=== PATIENT | female | born 1970 | race Caucasian/White ===

== ENCOUNTER 2017-01-31 02:20 | Emergency (ER) | payer OTHER ==
[~2017-01-31] VITALS: Ht 170.2 cm; Wt 64.6 kg
[~2017-01-31 02:20] MED LIST: AMPH30CA3 PO; ASPEC325 PO; BUPRTAB51 PO; FLUT220A INH; GABA-113 PO; LIDO1SOL9 PO; MECL1TAB40 PO; ONDA4TAB46 PO; OXYSR10 PO; PRAM0.129 PO; PREG200C PO; PRLSR20 PO; SALI0.6517 NAE; TRAM-453 PO; TRIA0.1L TOP; TRIA3AER NAE; VENL-273 PO
[2017-01-31 02:21] VITALS: TEMP 37.2; Ht 170.2 cm; Wt 64.6 kg
[2017-01-31] MEDS ORDERED: KETOROLAC TROMETHAMINE 30 MG/ML VIAL IV STA (02:38)
[2017-01-31] MEDS ORDERED: SODIUM CHLORIDE 0.9% 1000ML 1,000 ML IV ONE (02:45)
[2017-01-31] MEDS ORDERED: ACETAMINOPHEN IV 100 ML IV ONE (02:45)
[2017-01-31] MEDS ORDERED: FLUO90CA PO (02:54)
[2017-01-31] MEDS ORDERED: OMEP40CA41 PO (02:59)
[2017-01-31] MEDS ORDERED: DICL-201 PO (02:59)
[2017-01-31] MEDS ORDERED: PREG1CAP34 PO (02:59)
[2017-01-31] MEDS ORDERED: NIFE30TA83 PO (02:59)
[2017-01-31] MEDS ORDERED: PRAM1TAB52 PO (02:59)
[2017-01-31] MEDS ORDERED: GLC/500 PO (03:02)
[2017-01-31] MEDS ORDERED: HYDR-3124 PO (03:02)
[2017-01-31] MEDS ORDERED: TOPI50TA16 PO (03:03)
[2017-01-31] MEDS ORDERED: VNTHFA/IN INH (03:03)
[2017-01-31 03:06] LABS: BASO % 0.3 %; BASO ABS # 0.02 K/uL (0-0.2); COMPLETE YES; EOS % 1.5 %; HEMATOCRIT 34.1 % (37-47); IG% 0.1 %; LYMPH % 17.5 %; LYMPH ABS # 1.31 K/uL (1.2-3.4); MEAN CELL VOLUME 82.8 fL (80-100); MEAN CORPUSCULAR HEMOGLOBIN 27.7 pg (25-34); MEAN CORPUSCULAR HGB CONC 33.4 g/dl (32-36); MEAN PLATELET VOLUME 9.6 fL (7.4-10.4); MONO % 6.3 %; NEUT % 74.3 %; PLATELET COUNT 280 K/uL (130-400); RED BLOOD COUNT 4.12 M/uL (4.2-5.4); WHITE BLOOD COUNT 7.47 K/uL (4.8-10.8)
[2017-01-31 03:10] LABS: URINE APPEARANCE CLEAR (CLEAR); URINE BILIRUBIN NEG (NEG); URINE COLOR YELLOW; URINE EPITHELIAL CELL AUTO >30 /lpf (0-5); URINE NITRITE NEG (NEG); UROBILINOGEN NEG (NEG); ZZUR CULT IF INDIC CLEAN CATCH NO
[2017-01-31 03:11] LABS: MANUAL MICROSCOPIC REQUIRED? NO; REVIEW REQ? NO
[2017-01-31 03:23] LABS: BUN/CREATININE RATIO 18.7 (10-20); CALCIUM 8.1 mg/dl (8.5-10.1); CREATININE 0.69 mg/dl (0.60-1.20); POTASSIUM 3.6 mmol/L (3.5-5.1)
[2017-01-31] MEDS ORDERED: NORCO 5/325MG HOME PACK PO ONE (05:30)
[2017-01-31 05:42] VITALS: BP 110/68; PULSE 78; O2SAT 99
--- NOTE | 2017-01-31 07:22 | DIAGNOSTIC IMAGING REPORT ---
ULTRASOUND OF THE PELVIS CLINICAL HISTORY: Pelvic pain. COMPARISON STUDY: No priors. TECHNIQUE: Real-time, grayscale, and color flow sonography of the pelvis is performed both transabdominally and endovaginally. Images are reviewed in the transverse and longitudinal planes. FINDINGS: Uterus: The uterus is normal in size and echotexture, measuring 9.6 x 8.0 x 6.7 cm. The uterus is infiltrated by numerous fibroids. The largest measures over 4 cm. The uterus may be bicornuate. Nabothian cysts are suggested in the cervix. Endometrium: The endometrium is normal visualized and distorted by numerous fibroids. Michel stripe measures at least 4 mm in thickness. There is trace fluid within the endometrial canal in the fundal region. Ovaries: The ovaries are normal in size and morphology. The right ovary measures 3.4 x 1.7 x 1.7 cm and the left ovary measures 2.4 x 1.3 x 1.8 cm. There are small bilateral ovarian follicles. A 2.4 cm complex/hemorrhagic follicle is suggested on the right. Normal Doppler waveforms are shown within both ovaries. Pelvis: There is trace free fluid in the cul-de-sac. No concerning adnexal lesion is seen. IMPRESSION: 1. Enlarged and heterogeneous fibroid uterus. 2. Possibly bicornuate uterus. 3. There is trace and likely physiologic free fluid in the cul-de-sac. 4. There are numerous bilateral ovarian follicles, with a probable hemorrhagic follicle noted on the right. There is no sonographic evidence of a variant torsion at the time of examination. Electronically signed by: Carrillo Baez M.D. 01/31/2017 7:21 AM Dictated Date/Time: 01/31/2017 7:17 AM
--- NOTE | 2017-02-01 07:57 | EMERGENCY ROOM VISIT NOTE ---
History First contact with patient: : Chief Complaint: ABDOMINAL PAIN Stated Complaint: SEVERE PAIN IN LWR ABDOMEN Nursing Triage Summary: Patient reports that she has lower abdominal pain that has been going on for days, notes that she has hx of ovarian cysts. History of Present Illness The patient is a 47 year old female who presents to the Emergency Room with complaints of lower abdominal pain that has been going on for the past several months. The patient states that her symptoms are identical to normal and are worsening over the past 4 or 5 days. The patient reports a history of ovarian cysts and fibroids. She states her pain is sometimes cyclical around the time she should get her period. She has not had fever or chills. No chest pain, chest tightness, shortness of breath, upper abdominal pain. The patient rates her discomfort an 5/10. She does have tramadol at home that she took tonight without significant improvement of symptoms. She is without vaginal bleeding, drainage, or discharge. No dysuria. Review of Systems More than 10 systems were reviewed and otherwise negative with the exception of history of present illness. Past Medical/Surgical History History of anxiety and depression, ovarian cyst, uterine fibroid Family History No pertinent family history Social History Smoking Status: Never Smoker Housing Status: lives with family Current/Historical Medications Scheduled Amphetamine-Dextroamphetamine 30MG (Adderall Xr 30MG), 30 MG PO DAILY Diclofenac (Voltaren), 75 MG PO BIDM Gabapentin (Neurontin), 300 MG PO HS Meclizine HCl (Meclizine HCl), 12.5 MG PO DAILY Metformin Hcl (Glucophage), 500 MG PO BIDM Nifedipine Ext Rel (Procardia Xl Ext Rel), 30 MG PO DAILY Omeprazole (Prilosec), 40 MG PO DAILY Pramipexole Dihydrochloride (Mirapex), 1 TAB PO HS Pregabalin (Lyrica), 300 MG PO BID Topiramate (Topamax), 50 MG PO HS Scheduled PRN Albuterol Hfa (Ventolin Hfa), 2 PUFFS INH Q6H PRN for SOB/Wheezing Hydroxyzine Hcl (Atarax), 25 MG PO Q6 PRN for Itching Tramadol Hcl (Ultram), 50 MG PO Q6H PRN for Pain Miscellaneous Medications Fluoxetine Hcl (Prozac Weekly), 90 MG PO Allergies Coded Allergies: No Known Allergies (Verified , 01/31/17) Physical Exam Vital Signs Date Time Temp Pulse Resp B/P Pulse Ox O2 Delivery O2 Flow Rate FiO2 01/31/17 05:42 78 18 110/68 99 01/31/17 04:55 73 16 113/64 97 Room Air 01/31/17 02:21 37.2 112 18 130/85 98 Room Air Pain Rating (0-10): 3.0 Physical Exam VITALS: Vitals are noted on the nurse's note and reviewed by myself. Vital signs stable. GENERAL: Well-developed, well-nourished, white female, who is in no acute distress and resting comfortably. Patient is cooperative with the examination. HEAD: Normocephalic atraumatic. NECK: Supple without nuchal rigidity. No lymphadenopathy. No thyromegaly. Cervical spine is nontender. HEART: Regular rate and rhythm without murmurs gallops or rubs. LUNGS: Clear to auscultation bilaterally without wheezes, rales or rhonchi. No retractions or accessory muscle use. ABDOMEN: Positive normal bowel sounds x 4. Soft, nontender, without masses or organomegaly. No guarding or rebound tenderness. MUSCULOSKELETAL: No muscle atrophy, erythema, or edema noted. Full range of motion without joint tenderness in all extremities. NEURO: Patient was alert and oriented to person place and time. CN II through XII grossly intact. Medical Decision & Procedures ER Provider Diagnostic Interpretation: ULTRASOUND OF THE PELVIS CLINICAL HISTORY: Pelvic pain. COMPARISON STUDY: No priors. TECHNIQUE: Real-time, grayscale, and color flow sonography of the pelvis is performed both transabdominally and endovaginally. Images are reviewed in the transverse and longitudinal planes. FINDINGS: Uterus: The uterus is normal in size and echotexture, measuring 9.6 x 8.0 x 6.7 cm. The uterus is infiltrated by numerous fibroids. The largest measures over 4 cm. The uterus may be bicornuate. Nabothian cysts are suggested in the cervix. Endometrium: The endometrium is normal visualized and distorted by numerous fibroids. Michel stripe measures at least 4 mm in thickness. There is trace fluid within the endometrial canal in the fundal region. Ovaries: The ovaries are normal in size and morphology. The right ovary measures 3.4 x 1.7 x 1.7 cm and the left ovary measures 2.4 x 1.3 x 1.8 cm. There are small bilateral ovarian follicles. A 2.4 cm complex/hemorrhagic follicle is suggested on the right. Normal Doppler waveforms are shown within both ovaries. Pelvis: There is trace free fluid in the cul-de-sac. No concerning adnexal lesion is seen. IMPRESSION: 1. Enlarged and heterogeneous fibroid uterus. 2. Possibly bicornuate uterus. 3. There is trace and likely physiologic free fluid in the cul-de-sac. 4. There are numerous bilateral ovarian follicles, with a probable hemorrhagic follicle noted on the right. There is no sonographic evidence of a variant torsion at the time of examination. ULTRASOUND OF THE PELVIS CLINICAL HISTORY: Pelvic pain. COMPARISON STUDY: No priors. TECHNIQUE: Real-time, grayscale, and color flow sonography of the pelvis is performed both transabdominally and endovaginally. Images are reviewed in the transverse and longitudinal planes. FINDINGS: Uterus: The uterus is normal in size and echotexture, measuring 9.6 x 8.0 x 6.7 cm. The uterus is infiltrated by numerous fibroids. The largest measures over 4 cm. The uterus may be bicornuate. Nabothian cysts are suggested in the cervix. Endometrium: The endometrium is normal visualized and distorted by numerous fibroids. Michel stripe measures at least 4 mm in thickness. There is trace fluid within the endometrial canal in the fundal region. Ovaries: The ovaries are normal in size and morphology. The right ovary measures 3.4 x 1.7 x 1.7 cm and the left ovary measures 2.4 x 1.3 x 1.8 cm. There are small bilateral ovarian follicles. A 2.4 cm complex/hemorrhagic follicle is suggested on the right. Normal Doppler waveforms are shown within both ovaries. Pelvis: There is trace free fluid in the cul-de-sac. No concerning adnexal lesion is seen. IMPRESSION: 1. Enlarged and heterogeneous fibroid uterus. 2. Possibly bicornuate uterus. 3. There is trace and likely physiologic free fluid in the cul-de-sac. 4. There are numerous bilateral ovarian follicles, with a probable hemorrhagic follicle noted on the right. There is no sonographic evidence of a variant torsion at the time of examination. Laboratory Results 01/31/17 02:53 Red Blood Count 4.12, Mean Corpuscular Volume 82.8, Mean Corpuscular Hemoglobin 27.7, Mean Corpuscular Hemoglobin Concent 33.4, Mean Platelet Volume 9.6, Neutrophils (%) (Auto) 74.3, Lymphocytes (%) (Auto) 17.5, Monocytes (%) (Auto) 6.3, Eosinophils (%) (Auto) 1.5, Basophils (%) (Auto) 0.3, Neutrophils # (Auto) 5.55, Lymphocytes # (Auto) 1.31, Monocytes # (Auto) 0.47, Eosinophils # (Auto) 0.11, Basophils # (Auto) 0.02 01/31/17 02:53 Test 01/31/17 02:45 01/31/17 02:53 Urine Color YELLOW Urine Appearance CLEAR (CLEAR) Urine pH 8.0 (4.5-7.5) Urine Specific [place] 1.020 (1.000-1.030) Urine Protein NEG (NEG) Urine Glucose (UA) NEG (NEG) Urine Ketones NEG (NEG) Urine Occult Blood 2+ (NEG) Urine Nitrite NEG (NEG) Urine Bilirubin NEG (NEG) Urine Urobilinogen NEG (NEG) Urine Leukocyte Esterase TRACE (NEG) Urine WBC (Auto) 1-5 /hpf (0-5) Urine RBC (Auto) 0-4 /hpf (0-4) Urine Hyaline Casts (Auto) 0 /lpf (0-5) Urine Epithelial Cells (Auto) >30 /lpf (0-5) Urine Bacteria (Auto) NEG (NEG) Urine Test NEG (NEG) White Blood Count 7.47 K/uL (4.8-10.8) Red Blood Count 4.12 M/uL (4.2-5.4) Hemoglobin 11.4 g/dL (12.0-16.0) Hematocrit 34.1 % (37-47) Mean Corpuscular Volume 82.8 fL (80-100) Mean Corpuscular Hemoglobin 27.7 pg (25-34) Mean Corpuscular Hemoglobin Concent 33.4 g/dl (32-36) Platelet Count 280 K/uL (130-400) Mean Platelet Volume 9.6 fL (7.4-10.4) Neutrophils (%) (Auto) 74.3 % Lymphocytes (%) (Auto) 17.5 % Monocytes (%) (Auto) 6.3 % Eosinophils (%) (Auto) 1.5 % Basophils (%) (Auto) 0.3 % Neutrophils # (Auto) 5.55 K/uL (1.4-6.5) Lymphocytes # (Auto) 1.31 K/uL (1.2-3.4) Monocytes # (Auto) 0.47 K/uL (0.11-0.59) Eosinophils # (Auto) 0.11 K/uL (0-0.5) Basophils # (Auto) 0.02 K/uL (0-0.2) RDW Standard Deviation 47.6 fL (36.4-46.3) RDW Coefficient of Variation 15.6 % (11.5-14.5) Immature Granulocyte % (Auto) 0.1 % Immature Granulocyte # (Auto) 0.01 K/uL (0.00-0.02) Anion Gap 7.0 mmol/L (3-11) Est Creatinine Clear Calc Drug Dose 100.2 ml/min Estimated GFR () 121.8 Estimated GFR (Non- 105.1 BUN/Creatinine Ratio 18.7 (10-20) Calcium Level 8.1 mg/dl (8.5-10.1) Total Bilirubin 0.5 mg/dl (0.2-1) Aspartate Amino Transf (AST/SGOT) 7 U/L (15-37) Alanine Aminotransferase (ALT/SGPT) 18 U/L (12-78) Alkaline Phosphatase 55 U/L (45-117) Total Protein 6.9 gm/dl (6.4-8.2) Albumin 3.4 gm/dl (3.4-5.0) Globulin 3.5 gm/dl (2.5-4.0) Albumin/Globulin Ratio 1.0 (0.9-2) Lipase 197 U/L (73-393) Medications Administered Medications (Trade) Dose Ordered Sig/Jaylen Route Start Time Stop Time Status Last Admin Dose Admin Ketorolac Tromethamine 30 mg 30 mg NOW STAT IV 01/31/17 02:38 01/31/17 02:40 DC 01/31/17 03:00 30 MG Sodium Chloride 1,000 ml @ 999 mls/hr Q1H1M ONCE IV 01/31/17 02:45 01/31/17 03:45 DC 01/31/17 03:00 999 MLS/HR Acetaminophen (Ofirmev Iv) 100 ml @ 400 mls/hr NOW ONCE IV 01/31/17 02:45 01/31/17 02:59 DC 01/31/17 03:01 400 MLS/HR Acetaminophen/ Hydrocodone Bitart ([place] 5/325mg Home Pack) 1 homepack UD ONCE PO 01/31/17 05:30 01/31/17 05:31 DC 01/31/17 05:30 1 HOMEPACK ED Course Physical exam and history were performed. Nursing notes and EMR were reviewed. Patient appears to have lower abdominal pain/pelvic pain for the past several months. She does not have significant tenderness on examination. The patient has a reported history of fibroids and ovarian cysts. IV access was established and labs were obtained. The patient was hydrated and medicated as above. Ultrasounds were performed. The patient blood work is as above and was reviewed. She does not have a significantly elevated white blood cell count, anemia, bandemia, or gross electrolyte imbalance. Urine is without obvious signs of infection. Ultrasounds do confirm a hemorrhagic ovarian cyst as well as a fibroid uterus. On repeat abdominal examination the patient did not have any worsening of her symptoms. She certainly does not present with peritoneal symptoms or an acute surgical abdomen. Considering that she has had pain for several months and findings on ultrasound they could explain her discomfort I feel that a CAT scan is not necessary at this time. I had a lengthy discussion with the patient regarding her symptoms. She was more comfortable after hydration medication here in the department. I will give her a home pack of Vicodin and instructions to follow with her [employer] for further care and management. The patient was otherwise invited back to the ER with any new, worsening, or concerning symptoms. She voiced understanding of this plan and rated her discomfort a 0/10 at the time of departure. The chart was completed utilizing [employer] Speech Voice Recognition Software. Grammatical errors, random word insertions, pronoun errors, and incomplete sentences are an occasional consequence of this system due to software limitations, ambient noise, and hardware issues. Any formal questions or concerns about the content, text, or information contained within the body of this dictation should be directly addressed to the provider for clarification. . Medical Decision Differential diagnosis: Etiologies such as appendicitis, diverticulitis, PUD, biliary pathology, UTI, pancreatitis, obstruction, mesenteric ischemia, aortic pathology, infections, inflammatory bowel disease, renal colic, as well as others were entertained. Impression Primary Impression: Uterine fibroid Additional Impression: Ovarian cyst Departure Information Dispostion Home / Self-Care Condition GOOD Forms Call Back Authorization, HOME CARE DOCUMENTATION FORM, IMPORTANT VISIT INFORMATION Patient Instructions [facility] Additional Instructions You were seen and evaluated today on an emergency basis only. This is not a substitute for, or an effort to provide, complete comprehensive medical care. It is not possible to recognize and treat all injuries or illnesses in a single emergency department visit. For this reason it is recommended that you followup with your primary care physician or [employer] this week for ongoing care and evaluation. For baseline pain relief you may alternate ibuprofen and acetaminophen every 4 hours for pain control. Take 600 mg ibuprofen (Advil) and then 4 hours later take 1000 mg acetaminophen (Tylenol). Do not take more than 3000 mg acetaminophen in a single day. [place] (hydrocodone/acetaminophen) 5/325 mg (homepack) every 6 hours as needed for worsening breakthrough pain. Do not drink or drive on [place]. This medication will likely make you tired. Do not take [place] and Tylenol at the same time as both contain acetaminophen. Morton may cause constipation. You may wish to take an [id number] stool softener like Colace if this occurs. You are welcome to return to the emergency department anytime with new, worsening, or concerning symptoms. Problem Qualifiers
== END 2017-01-31 05:43 | disposition home or self-care (01) ==
LOC: C.EDB 02:21
DX: D25.9 Leiomyoma of uterus, unspecified (principal); N83.201 Unspecified ovarian cyst, right side; F41.9 Anxiety disorder, unspecified; F32.9 Major depressive disorder, single episode, unspecified; Z79.899 Other long term (current) drug therapy

== ENCOUNTER 2017-03-18 06:26 | Inpatient (IN) | payer OTHER ==
[2017-02-23 13:10] VITALS: BMI 21.0
--- NOTE | 2017-02-23 13:36 | PAT Medication Instructions ---
Service Date Feb 23, 2017. Current Home Medication List Albuterol Hfa (Ventolin Hfa), 2 PUFFS INH Q6H PRN for SOB/Wheezing Amphetamine-Dextroamphetamine 30MG (Adderall Xr 30MG), 30 MG PO QAM Diclofenac (Voltaren), 75 MG PO BIDM Fluoxetine Hcl (Prozac Weekly), 90 MG PO TUESDAY Gabapentin (Neurontin), 300 MG PO HS Hydroxyzine Hcl (Atarax), 25 MG PO Q6 PRN for Itching Nifedipine Ext Rel (Procardia Xl Ext Rel), 30 MG PO HS Omeprazole (Prilosec), 40 MG PO QAM Pramipexole Dihydrochloride (Mirapex), 1 TAB PO HS Pregabalin (Lyrica), 300 MG PO QAM Tramadol Hcl (Ultram), 50 MG PO Q6H PRN for Pain Medication Instructions For Your Scheduled Surgery Albuterol Hfa (Ventolin Hfa), 2 PUFFS INH Q6H PRN for SOB/Wheezing (only uses with bronchitis) Fluoxetine Hcl (Prozac Weekly), 90 MG PO TUESDAY (continue as usual) - Hold the following medications evening prior to surgery: Pramipexole Dihydrochloride (Mirapex), 1 TAB PO HS - Hold the following medications the morning of surgery: Amphetamine-Dextroamphetamine 30MG (Adderall Xr 30MG), 30 MG PO QAM Diclofenac (Voltaren), 75 MG PO BIDM (not told to stop by surgeon) - Take the following medications the morning of surgery with a sip of water: Pregabalin (Lyrica), 300 MG PO QAM Omeprazole (Prilosec), 40 MG PO QAM - Take the following medications as scheduled the night before surgery: Tramadol Hcl (Ultram), 50 MG PO QHS Nifedipine Ext Rel (Procardia Xl Ext Rel), 30 MG PO HS Hydroxyzine Hcl (Atarax), 25 MG PO Q6 PRN for Itching Gabapentin (Neurontin), 300 MG PO HS If you have any questions please call us at [phone] or [phone] ( [place]) or [phone]
[2017-02-23 14:28] LABS: BASO % 0.6 %; BASO ABS # 0.03 K/uL (0-0.2); COMPLETE YES; EOS % 1.8 %; IG% 0.2 %; LYMPH % 31.6 %; LYMPH ABS # 1.55 K/uL (1.2-3.4); MEAN CELL VOLUME 85.1 fL (80-100); MEAN CORPUSCULAR HEMOGLOBIN 27.4 pg (25-34); MEAN CORPUSCULAR HGB CONC 32.2 g/dl (32-36); MONO % 6.9 %; NEUT % 58.9 %; PLATELET COUNT 318 K/uL (130-400); RED BLOOD COUNT 4.35 M/uL (4.2-5.4)
[2017-02-23 16:15] LABS: BUN/CREATININE RATIO 13.8 (10-20); CREATININE 0.65 mg/dl (0.60-1.20); POTASSIUM 3.3 mmol/L (3.5-5.1)
[~2017-03-18] VITALS: Ht 170.2 cm; Wt 63.0 kg
[2017-03-18] VITALS (9 sets, daily range): BP systolic 104–131; BP diastolic 65–82; PULSE 71–84; TEMP 36.4–36.7; O2SAT 94–99; Ht 170.2 cm; Wt 63.0 kg
[~2017-03-18 06:26] MED LIST changes: -ASPEC325 PO; -BUPRTAB51 PO; +CEFAZOLIN 2000 MG/60 ML D5W IV SCH; +DICL-201 PO; +FLUO90CA PO; -FLUT220A INH; +HYDR-3124 PO; +LACTATED RINGER'S 1000ML 1,000 ML IV SCH; -LIDO1SOL9 PO; -MECL1TAB40 PO; +NIFE30TA83 PO; +OMEP40CA41 PO; -ONDA4TAB46 PO; -OXYSR10 PO; -PRAM0.129 PO; +PRAM1TAB52 PO; +PREG1CAP34 PO; -PREG200C PO; -PRLSR20 PO; -SALI0.6517 NAE; -TRIA0.1L TOP; -TRIA3AER NAE; -VENL-273 PO; +VNTHFA/IN INH
--- NOTE | 2017-03-18 07:02 | History & Physical Bridge Note ---
H&P Re-Evaluation Bridge Note: I have examined the patient, reviewed the History & Physical and in the interval since the performance of the History & Physical I have noted the following changes of clinical significance: No changes noted
[2017-03-18] MEDS ORDERED: GLYCOPYRROLATE INJ 0.2 MG/ML VIAL ONE ×2 (07:22→10:52)
[2017-03-18] MEDS ORDERED: ONDANSETRON INJ 2 MG/ML 2 ML VIAL ONE (07:22)
[2017-03-18] MEDS ORDERED: MIDAZOLAM HCL 1 MG/ML 2ML VIAL ONE (07:22)
[2017-03-18] MEDS ORDERED: FENTANYL CITRATE INJ 50 MCG/1 ML 2 ML VIAL ONE ×2 (07:22)
[2017-03-18] MEDS ORDERED: LIDOCAINE HCL 2% 2 ML VIAL (20MG/ML) ONE (07:22)
[2017-03-18] MEDS ORDERED: NEOSTIGMINE METHYLSULFATE 5 MG/5 ML SYR ONE (07:22)
[2017-03-18] MEDS ORDERED: PROPOFOL IV EMULSION 10 MG/ML 20 ML VIAL IV ONE (07:22)
[2017-03-18] MEDS ORDERED: ROCURONIUM BROMIDE 10 MG/ML 5 ML VIAL ONE (07:22)
[2017-03-18] MEDS ORDERED: DEXAMETHASONE SOD INJ 4 MG/ML VIAL ONE (07:22)
[2017-03-18] MEDS ORDERED: HYDROmorphone INJ 1 MG/ML SYR IV PRN (08:15)
[2017-03-18] MEDS ORDERED: ONDANSETRON INJ 2 MG/ML 2 ML VIAL IV PRN ×2 (08:15→11:45)
[2017-03-18] MEDS ORDERED: MEPERIDINE HCL 25 MG/ML CARP IV PRN (08:15)
[2017-03-18] MEDS ORDERED: EpHEDrine SULFATE INJ 50 MG/ML AMP IV PRN (08:15)
[2017-03-18] MEDS ORDERED: ATROPINE SULFATE 0.1 MG/ML 5ML SYR IV PRN (08:15)
[2017-03-18] MEDS ORDERED: LABETALOL HCL IV 5 MG/ML 20ML IV PRN (08:15)
[2017-03-18] MEDS ORDERED: BUPIVACAINE 0.5 % 5 MG/1 ML MPF 30ML VIAL ONE (08:41)
[2017-03-18] MEDS ORDERED: MINERAL OIL LIGHT 10 ML BTL ONE (08:41)
[2017-03-18] MEDS ORDERED: METHYLENE BLUE 0.5% 10 ML VIAL ONE (08:41)
[2017-03-18] MEDS ORDERED: HYDROmorphone INJ 2 MG/ML SYR/VIAL ONE (09:16)
[2017-03-18] MEDS ORDERED: METHYLENE BLUE 1% 10 ML VIAL ONE (10:40)
[2017-03-18] MEDS ORDERED: EpHEDrine SULFATE 50MG/5ML SYR ONE (11:11)
[2017-03-18] MEDS ORDERED: LACTATED RINGER'S 1000ML 1,000 ML IV SCH (11:38)
[2017-03-18] MEDS ORDERED: BISACODYL 10 MG SUPP PR PRN (11:45)
[2017-03-18] MEDS ORDERED: ALBUTEROL HFA 8 GM INHALER INH PRN (11:45)
[2017-03-18] MEDS ORDERED: hydrOXYzine HCL 25 MG TAB PO PRN (11:45)
[2017-03-18] MEDS ORDERED: SENNA 8.6 MG TAB PO PRN (11:45)
[2017-03-18] MEDS ORDERED: IBUPROFEN 600 MG TAB PO PRN (11:45)
[2017-03-18] MEDS ORDERED: MAGNESIUM HYDROXIDE SUSP 30 ML UDC PO PRN (11:45)
--- NOTE | 2017-03-18 11:47 | [facility] Post Operative Brief Note ---
Immediate Operative Summary Operative Date March 18, 2017. Pre-Operative Diagnosis Fibroid Uterus; Chronic Pelvic Pain, vaginal skin tag Post-Operative Diagnosis Fibroid Uterus; Chronic Pelvic Pain, vaginal skin tag, right ovarian mass, left paratubal cyst Procedure(s) Performed laparoscopic hysterectomy with right salpingo-oopherectomy, and left para-tubal cystectomy, cystoscopy, vaginal skin tag removal. Surgeon Dr. Kvng Rosario [facility] Medical Assistant Surgeon(s) Dr. Chacon Estimated Blood Loss 30ml Findings On laparoscopic exam uterus was enlarged with multiple fibroids noted. There was a right ovarian mass therefore the decision was made to remove the right ovary and tube. There was also a left paratubal cyst which was also removed. Once the uterus, cervix, right ovary and tube along with the left paratubal cyst was removed anesthesia was instructed to push methylene blue. Once the vaginal cuff was closed laparoscopically a cystoscopy was performed noting bilateral ureteral openings ejecting blue tinged urine indicating bilateral ureters were intact. There was also no injury or suture noted within the bladder wall. The patient did request a vaginal skin tag to be removed which was grasped with forceps and removed with scissors. Excellent hemostasis noted at the completion of the surgery. Patient tolerated the surgery well and was sent to recovery with stable vital signs. Fluids (cc crystalloids) 1300 Specimens A. uterus B. right ovary and tube C. left paratubal cyst Drains lanza to gravity Anesthesia general Complication(s) None Disposition Recovery Room / PACU
[2017-03-18] MEDS: FENTANYL CITRATE INJ 50 MCG/1 ML 2 ML VIAL IV PRN ×5 (11:56→12:16)
--- NOTE | 2017-03-18 12:53 | Anesthesiology Progress Note ---
Anesthesia Post Op Note Date & Time March 18, 2017 at 12:53 Vital Signs Pain Intensity: 4 Vital Signs Past 12 Hours Date Time Temp Pulse Resp B/P Pulse Ox O2 Delivery O2 Flow Rate FiO2 03/18/17 12:15 119/79 03/18/17 12:12 81 12 99 03/18/17 12:12 81 12 03/18/17 12:10 120/72 03/18/17 12:07 82 12 03/18/17 12:07 82 12 98 03/18/17 12:05 121/76 03/18/17 12:02 83 9 99 03/18/17 12:02 83 9 03/18/17 12:00 119/73 03/18/17 11:57 83 13 99 03/18/17 11:57 83 13 03/18/17 11:55 121/76 03/18/17 11:52 87 14 03/18/17 11:52 87 14 128/80 99 03/18/17 11:47 36.4 87 14 128/80 99 Mask 10 03/18/17 07:13 36.7 84 18 119/82 98 Room Air Notes Mental Status: alert / awake / arousable, participated in evaluation Pt Amnestic to Procedure: Yes Nausea / Vomiting: adequately controlled Pain: adequately controlled Airway Patency, RR, SpO2: stable & adequate BP & HR: stable & adequate Hydration State: stable & adequate Anesthetic Complications: no major complications apparent
[2017-03-18] MEDS: KETOROLAC TROMETHAMINE 30 MG/ML VIAL IV. PRN ×2 (14:01→20:44)
[2017-03-18] MEDS: OXYCODONE/ACETAMINOPHEN 5-325 TAB PO PRN ×2 (15:42→16:25)
--- NOTE | 2017-03-18 16:11 | OPERATIVE REPORT ---
DATE OF OPERATION: 03/18/2017 PREOPERATIVE DIAGNOSES: 1. Enlarged fibroid uterus. 2. Chronic pelvic pain. 3. Vaginal skin tag. POSTOPERATIVE DIAGNOSES: 1. Same. 2. Right ovarian mass. 3. Left paratubal Cyst OPERATIVE PROCEDURE: Total laparoscopic hysterectomy with right salpingo-oophorectomy and left paratubal cystectomy, cystoscopy and vaginal skin tag removal. SURGEON: Dr. Kvng Rosario. RESIDENTIAL CAREGIVER: Dr. Pedersen. ANESTHESIA: General. ESTIMATED BLOOD LOSS: 30 mL. IV FLUIDS: 1300 mL crystalloids. SPECIMENS: Uterus, cervix, right ovary and tube and left paratubal cyst. DRAINS: Mullins to gravity. COMPLICATIONS: None. DISPOSITION: Recovery room. OPERATIVE FINDINGS: Upon laparoscopic exam, the uterus was enlarged with multiple fibroids noted. There was a right ovarian mass with nodularity. Therefore, the decision was made to remove the right ovary and tube. There was also a left paratubal cyst, which was also removed. Once the uterus, cervix, right ovary and tube along with the left paratubal cyst was removed, anesthesia was instructed to push methylene blue. Once the vaginal cuff was closed laparoscopically, a cystoscopy was performed noting bilateral ureteral openings injecting blue-tinged urine, indicating bilateral ureters were intact. There was also no injury or suture noted within the bladder wall. The patient did request a vaginal skin tag to be removed, which was grasped with forceps and removed with scissors. The site was then suture ligated with 3-0 Vicryl suture in continuous running fashion. Excellent hemostasis was noted. The patient tolerated the surgery well and was sent to recovery with stable vital signs. OPERATIVE PROCEDURE IN DETAIL: The patient was taken to the operating room, where general anesthesia was administered. Once anesthesia was found to be adequate, the patient was placed in the dorsal lithotomy position and was prepped and draped in a manner appropriate for the procedure. A weighted speculum was then placed into the vagina. The anterior lip of the cervix was grasped with a single tooth tenaculum. A large VCare uterine manipulator was then placed within the uterus in an anteverted fashion and was suture ligated to the cervix at 12 o'clock and 6 o'clock position with 0 Vicryl suture. Once the VCare uterine manipulator was in place, the single tooth tenaculum was removed along with weighted speculum. A sterile Mullins catheter was then placed within the bladder and remained indwelling throughout the entire procedure. The patient was then ready for the laparoscopic portion of the procedure. Attention was directed towards the abdomen. 0.5% Marcaine was injected below the umbilicus and an 11-mm skin incision was made below the umbilicus in a horizontal fashion. A Veress needle was then placed within the abdomen. Normal saline was injected with no fecal content aspirated. Pneumoperitoneum was then created. The Veress needle was then removed and an 11-mm trocar was then placed within the abdomen under direct laparoscopic visualization. A second 11-mm skin incision was made on the left side of the abdomen and a second 11-mm trocar was then placed within the abdomen under direct laparoscopic visualization. A third 11-mm skin incision was made on the right side of the abdomen in a horizontal fashion and a third 11-mm trocar was placed within the abdomen under direct laparoscopic visualization. The patient was then placed in a steep Trendelenburg position and the bowel contents were displaced superiorly away from the pelvis. A thorough examination was then performed. Attention was directed towards the right adnexa, where the round ligament was cauterized and transected. The right uteroovarian ligament was cauterized and transected, continued inferiorly through the broad ligament. The broad ligament was and the anterior leaf of the broad ligament was cauterized and transected across the lower uterine segment, creating a bladder flap. The bladder was pushed away from the lower uterine segment. Attention was directed towards the left adnexa, which likewise the left round ligament was cauterized and transected along with the left uteroovarian ligament, which was cauterized and transected, continued inferiorly through to the broad ligament. The anterior leaf of the broad ligament was cauterized and transected across the lower uterine segment completing the bladder flap. The bladder was pushed away from the lower uterine segment. Bilateral ascending uterine arteries were cauterized and transected, continued inferiorly through the cardinal uterosacral complex, cauterized and transected as continued inferiorly. Once we were at the level of the VCare, the cervix and uterus were transected circumferentially with the LigaSure. Once the uterus and cervix were amputated, it was removed through the vagina. Once the specimen was removed, a sterile glove with a sponge within it was placed within the vagina to maintain the pneumoperitoneum. Attention was then directed towards the vaginal cuff, which was closed with 0 Vicryl suture. Once the vaginal cuff was closed, the peritoneum was reapproximated with the 0 Polysorb in a continuous running fashion with an EndoStitch. Attention was then directed towards the right adnexa. The right ovary was noted to be slightly enlarged with a mass at the apex and some nodularity. Therefore, the decision was made to remove the right ovary and tube. The ovary and tube were grasped and using the LigaSure, the infundibulopelvic ligament was cauterized and transected, continued inferiorly to the rest of the attachment point to the right ovary and tube. Once the entire specimen was successfully removed, excellent hemostasis was noted. Attention was then directed towards the left adnexa, where likewise there was a left paratubal cyst, which was cauterized and transected. Once both specimens were removed, they were placed in an EndoCatch bag and removed through the right-sided trocar. Once the specimens were removed from the abdomen, the trocar was replaced back within its incision. Attention at the operative site was noted to be hemostatic. The entire pelvis was irrigated and the irrigation was then suctioned out. At this point, the laparoscopic portion of the procedure was found to be complete and as much CO2 gas was allowed to percolate through open cannulas. Attention was then directed towards the perineum. The Mullins catheter was removed along with the sterile glove from the vagina. A cystoscopy was performed. The cystoscope was introduced into the bladder. Bilateral ureteral openings were noted to be spilling blue-tinged urine indicating bilateral ureters were intact. There was no suture or injury to the wall as well. At this point, the cystoscope was removed and a second sterile Mullins catheter was placed within the bladder. Attention was directed towards the vagina, where there was a small vaginal skin tag, which was most likely a remnant of the hymen. The skin tag was grasped with pickups and removed with sterile scissors. The removal site was then suture ligated with 3-0 Vicryl suture in a continuous running fashion. Excellent hemostasis was noted. At this point, the procedure was found to be complete. Attention was directed towards the abdomen, where the trocars were removed. The fascia of all 3 skin incisions were closed with 0 Vicryl suture in a [id number] interrupted fashion. All 3 skin incisions were closed with 4-0 Monocryl in a subcuticular fashion. Excellent hemostasis was noted. All sponge and instrument counts were found to be correct x2. The patient tolerated the surgery well and was sent to recovery with stable vital signs. I attest to the content of the Intraoperative Record and any orders documented therein. Any exceptions are noted below. MTDD
[2017-03-18] MEDS: DICLOFENAC SOD EC 75 MG TABCR PO SCH (17:30)
[2017-03-18 19:20] LABS: HEMATOCRIT 32.2 % (37-47)
[2017-03-18] MEDS: AMPHETAMINE-DEXTROAMPHETAMINE 30 MG CAP PO SCH (19:48)
[2017-03-18] MEDS ORDERED: AMPHETAMINE PO SCH (20:00)
[2017-03-18] MEDS ORDERED: DEXTROAMPHETAMINE PO SCH (20:00)
[2017-03-18] MEDS ORDERED: GABAPENTIN 300 MG CAP PO SCH (21:00)
[2017-03-18] MEDS ORDERED: PRAMIPEXOLE DIHYDROCHLORIDE 0.25MG TAB PO SCH (21:00)
[2017-03-18] MEDS ORDERED: NIFEdipine 30 MG CR TAB PO SCH (21:00)
[2017-03-19] MEDS: OXYCODONE/ACETAMINOPHEN 5-325 TAB PO PRN ×3 (00:27→11:27)
[2017-03-19 03:40] VITALS: BP 112/68; PULSE 87; TEMP 36.8; O2SAT 97
[2017-03-19] MEDS: DICLOFENAC SOD EC 75 MG TABCR PO SCH (07:38)
[2017-03-19 07:40] VITALS: BP 124/78; PULSE 81; TEMP 36.6; O2SAT 97
[2017-03-19 08:01] LABS: BASO % 0.2 %; BASO ABS # 0.01 K/uL (0-0.2); COMPLETE YES; EOS % 0.9 %; HEMATOCRIT 29.1 % (37-47); IG% 0.2 %; LYMPH % 27.1 %; LYMPH ABS # 1.59 K/uL (1.2-3.4); MEAN CELL VOLUME 84.8 fL (80-100); MEAN CORPUSCULAR HEMOGLOBIN 27.7 pg (25-34); MEAN CORPUSCULAR HGB CONC 32.6 g/dl (32-36); MEAN PLATELET VOLUME 10.1 fL (7.4-10.4); MONO % 7.8 %; NEUT % 63.8 %; PLATELET COUNT 239 K/uL (130-400); RED BLOOD COUNT 3.43 M/uL (4.2-5.4); WHITE BLOOD COUNT 5.86 K/uL (4.8-10.8)
[2017-03-19 08:34] LABS: BUN/CREATININE RATIO 17.6 (10-20); CREATININE 0.49 mg/dl (0.60-1.20); POTASSIUM 3.2 mmol/L (3.5-5.1)
[2017-03-19 08:47] LABS: CALCIUM 8.7 mg/dl (8.5-10.1)
[2017-03-19] MEDS ORDERED: ESTROGENS, CONJUGATED 0.625 MG TAB PO SCH (09:00)
[2017-03-19] MEDS ORDERED: PANTOprazole SOD 40 MG TAB PO SCH (09:00)
[2017-03-19] MEDS ORDERED: PREGABALIN 150 MG CAP PO SCH (09:00)
[2017-03-19] MEDS ORDERED: OXYC-57 PO (09:04)
[2017-03-19] MEDS ORDERED: MTR600X PO (09:04)
[2017-03-19] MEDS: AMPHETAMINE-DEXTROAMPHETAMINE 30 MG CAP PO SCH (09:08)
--- NOTE | 2017-03-19 09:09 | Discharge Instructions ---
Discharge Instructions Date of Service March 19, 2017. Admission Reason for Admission: Fibroid Uterus, Chronic Pelvic Pain Discharge Discharge Diagnosis / Problem: fibroid uterus Discharge Goals Goal(s): Routine recovery after surgery Activity Recommendations Activity Limitations: as noted below Lifting Limitations: gradually increase as tolerated Exercise/Sports Limitations: as tolerated May Resume Sexual Activity: after follow-up appointment Shower/Bathe: no limitations Driving or Machine Use: resume 3 days after discharge . Instructions / Follow-Up Instructions / Follow-Up POST OPERATIVE: BOWEL FUNCTION/MEDICATIONS: 1. Constipation pain and discomfort are the most common complaints 5-7 days after surgery. Points 2-6 address the things that can help. 2. Chewing gum can help stimulate the gut and help improve digestion and motility. 3. Milk of Magnesia 1-2 times per day until return of bowel function. 4. Colace is a stool softener that helps. Taking this 2-3 times per day until bowel function returns to normal is highly recommended. 5. Dulcolax is a laxative that may be used if several days have passed without a bowel movement. Alternatively Miralax may be used daily instead. 6. Drink plenty of fluids as this will also reduce constipation. 7. Narcotic pain medications will be prescribed by your physician. They are safe to use and we encourage you to use them. If you are not allergic, ibuprofen will also be prescribed. Many patients will be able to transition off of the narcotic medications to ibuprofen by postoperative day 3. ACTIVITY RECOMMENDATIONS: 1. Get plenty of rest and listen to your body. If you are tired, take a nap. 2. You may shower, but do not take a tub bath until you see your doctor at the 2 week post operative visit. 3. Absolutely NO intercourse and nothing in the vagina until you are examined by your doctor at the 6 week visit. At that visit it will be determined when such activities can be resumed. This can range from 6-12 weeks after your surgery depending on healing time. 4. The main physical activity in the first week should be walking. By the second week you can slowly increase activity. There are no limits on walking up and down stairs. 5. Do not lift more than 5-10 lbs for 4 weeks. Remember the "one-handed rule", i.e. if you can lift something with only one hand it's likely okay. 6. 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 "Overdoing it" can lead to incisions not healing, pain and vaginal bleeding , so again, listen to your body. 7. Driving can be resumed when you feel able. Do not drive within 24 hours of taking a narcotic medication. EXPECTATIONS: 1. Vaginal spotting, bleeding and discharge are common after surgery. There may even be an odor to the discharge which is often related to sutures used in the vagina. If you experience heavy vaginal bleeding, call the office number day or night [phone]. 2. Bladder discomfort is common after surgery from the catheter. This usually resolves in 1-2 weeks. 3. By the end of the 3rd or 4th week you should be feeling much better. It may take up to 6 weeks for your energy levels to return to normal. 4. Narcotic medications have side effects such as: dizziness, headache, nausea and/or vomiting. If you suspect your pain medication is causing problems, call our office and we may be able to prescribe an alternate medication. 5. The skin incisions are often covered with a liquid bandage. This will gradually peel off over time. CALL THE OFFICE IF YOU HAVE ANY OF THE FOLLOWIN. Temperature of 101 degrees or higher. 2. Severe abdominal or pelvic pain not relieved by pain medication. 3. Persistent nausea or vomiting. 4. Increased pain with urination or difficulty urinating. 5. Bright red bleeding that soaks more than 1 pad per hour. CONTACT PHONE NUMBERS: Main Office: [phone] FOLLOW-UP: Post-Operative Appointments: * Individual instructions will have been given about the timing of your first examination, but this is usually at the end of the second week home. * You will need to call the office at soon after discharge to make the appointment for your post-op check-up if it has not already been scheduled. * Additional information regarding activity, sexual intercourse and when to return to work will be given at this appointment. WE WISH YOU A SPEEDY RECOVERY! Current Hospital Diet Patient's current hospital diet: Regular Diet Discharge Diet Recommended Diet: Regular Diet Procedures Procedures Performed: laparoscopic hysterectomy with right salpingo-oopherectomy, and left para-tubal cystectomy, cystoscopy, vaginal skin tag removal. Pending Studies Studies pending at discharge: no Medical Emergencies . Who to Call and When: Medical Emergencies: If at any time you feel your situation is an emergency, please call 911 immediately. . Non-Emergent Contact Non-Emergency issues call your: Primary Care Provider . . "Provider Documentation" section prepared by Reilly Burgos. . VTE Core Measure Inpt VTE Proph given/why not?: Treatment not indicated
[2017-03-19 11:19] VITALS: BP 124/78; PULSE 81; TEMP 36.6; O2SAT 97
--- NOTE | 2017-04-01 11:18 | Discharge Summary ---
Discharge Summary Date of Service April 01, 2017. Discharge Summary Admission Date: March 18, 2017 at 07:05 Discharge Date: March 19, 2017 Discharge Disposition: Home Principal Diagnosis: Fibroid Uterus; Chronic Pelvic Pain, vaginal skin tag, right ovarian mass, left paratubal cyst Procedures: Total laparoscopic hysterectomy with right salpingo-oophorectomy and left paratubal cystectomy, cystoscopy and vaginal skin tag removal. Medication Reconciliation New Medications: Ibuprofen (Ibuprofen) 600 Mg Tab 600 MG PO Q4H PRN for Pain, WEEKS, Cramping, Edema, #30 TAB 2 Refills Oxycodone/Acetaminophen 5MG/325MG (Percocet 5MG/325MG) Tab 1-2 TAB PO Q4H PRN for WEEKS, Cramping, edema, #20 TAB 0 Refills PAIN Continued Medications: Albuterol Hfa (Ventolin Hfa) 200 Puffs/51639 Mcg Aers 2 PUFFS INH Q6H PRN for SOB/Wheezing, #1 INHALER Amphetamine-Dextroamphetamine 30MG (Adderall Xr 30MG) 1 Cap Cap 30 MG PO QAM, CAP Diclofenac (Voltaren) 75 Mg Tabcr 75 MG PO BIDM, TAB WITH FOOD Fluoxetine Hcl (Prozac Weekly) 90 Mg Cap 90 MG PO TUESDAY Gabapentin (Neurontin) 300 Mg Cap 300 MG PO HS, CAP Hydroxyzine Hcl (Atarax) 25 Mg Tab 25 MG PO Q6 PRN for Itching, TAB Nifedipine Ext Rel (Procardia Xl Ext Rel) 30 Mg Tabcr 30 MG PO HS, TAB Omeprazole (Prilosec) 40 Mg Cap 40 MG PO QAM, CAP Pramipexole Dihydrochloride (Mirapex) 0.25 Mg Tab 1 TAB PO HS, #30 TAB 5 Refills Pregabalin (Lyrica) 300 Mg Cap 300 MG PO QAM, CAP Tramadol Hcl (Ultram) 50 Mg Tab 50 MG PO Q6H PRN for Pain Admission Information HPI (per Admitting provider): Patient is a 47 y/o with a long history for chronic pelvic pain and known enlarged fibroid uterus. After much counseling she has opted to proceed with a total laparoscopic hysterectomy. Physical Exam (per Admitting): General Appearance: WD/WN, no apparent distress Respiratory/Chest: chest non-tender, lungs clear Cardiovascular: regular rate, rhythm Abdomen/GI: normal bowel sounds, non tender, soft Neurologic/Psych: alert, oriented x 3 Skin: normal color, warm/dry, no rash Hospital Course Patient underwent a Total laparoscopic hysterectomy with right salpingo- oophorectomy and left paratubal cystectomy, cystoscopy and vaginal skin tag removal on day of admission without complications. Her postop recovery was uneventful. Her pain was well controlled. her lanza catheter was removed on the morning of POD # 1. Her diet and activity were advanced as tolerated. She was discharged home on POD # 1 with discharge instructions. Total time spent on discharge = 20 mins This includes examination of the patient, discharge planning, medication reconciliation, and communication with other providers. Discharge Instructions POST OPERATIVE: BOWEL FUNCTION/MEDICATIONS: 1. Constipation pain and discomfort are the most common complaints 5-7 days after surgery. Points 2-6 address the things that can help. 2. Chewing gum can help stimulate the gut and help improve digestion and motility. 3. Milk of Magnesia 1-2 times per day until return of bowel function. 4. Colace is a stool softener that helps. Taking this 2-3 times per day until bowel function returns to normal is highly recommended. 5. Dulcolax is a laxative that may be used if several days have passed without a bowel movement. Alternatively Miralax may be used daily instead. 6. Drink plenty of fluids as this will also reduce constipation. 7. Narcotic pain medications will be prescribed by your physician. They are safe to use and we encourage you to use them. If you are not allergic, ibuprofen will also be prescribed. Many patients will be able to transition off of the narcotic medications to ibuprofen by postoperative day 3. ACTIVITY RECOMMENDATIONS: 1. Get plenty of rest and listen to your body. If you are tired, take a nap. 2. You may shower, but do not take a tub bath until you see your doctor at the 2 week post operative visit. 3. Absolutely NO intercourse and nothing in the vagina until you are examined by your doctor at the 6 week visit. At that visit it will be determined when such activities can be resumed. This can range from 6-12 weeks after your surgery depending on healing time. 4. The main physical activity in the first week should be walking. By the second week you can slowly increase activity. There are no limits on walking up and down stairs. 5. Do not lift more than 5-10 lbs for 4 weeks. Remember the "one-handed rule", i.e. if you can lift something with only one hand it's likely okay. 6. Minimize installation supervisor like vacuuming and exercising for 4 weeks. "Overdoing it" can lead to incisions not healing, pain and vaginal bleeding , so again, listen to your body. 7. Driving can be resumed when you feel able. Do not drive within 24 hours of taking a narcotic medication. EXPECTATIONS: 1. Vaginal spotting, bleeding and discharge are common after surgery. There may even be an odor to the discharge which is often related to sutures used in the vagina. If you experience heavy vaginal bleeding, call the office number day or night [phone]. 2. Bladder discomfort is common after surgery from the catheter. This usually resolves in 1-2 weeks. 3. By the end of the 3rd or 4th week you should be feeling much better. It may take up to 6 weeks for your energy levels to return to normal. 4. Narcotic medications have side effects such as: dizziness, headache, nausea and/or vomiting. If you suspect your pain medication is causing problems, call our office and we may be able to prescribe an alternate medication. 5. The skin incisions are often covered with a liquid bandage. This will gradually peel off over time. CALL THE OFFICE IF YOU HAVE ANY OF THE FOLLOWIN. Temperature of 101 degrees or higher. 2. Severe abdominal or pelvic pain not relieved by pain medication. 3. Persistent nausea or vomiting. 4. Increased pain with urination or difficulty urinating. 5. Bright red bleeding that soaks more than 1 pad per hour. CONTACT PHONE NUMBERS: Main Office: [phone] FOLLOW-UP: Post-Operative Appointments: * Individual instructions will have been given about the timing of your first examination, but this is usually at the end of the second week home. * You will need to call the office at [phone] soon after discharge to make the appointment for your post-op check-up if it has not already been scheduled. * Additional information regarding activity, sexual intercourse and when to return to work will be given at this appointment. WE WISH YOU A SPEEDY RECOVERY!
== END 2017-03-19 14:10 | disposition home or self-care (01) | DRG 743 ==
LOC: ENRESERVTM → ENRESERVDT → C.ACU 06:26 → C.MS4N 07:05
PROVIDERS: ADMIT Obstetrics & Gynecology; ATTEND Obstetrics & Gynecology
PROC: 0HBAXZZ Excision of Inguinal Skin, External Approach (ICD-10-PCS; principal; 2017-03-18 08:00)
PROC: 0UT54ZZ Resection of Right Fallopian Tube, Percutaneous Endoscopic Approach (ICD-10-PCS; principal; 2017-03-18 08:00)
PROC: 0UT94ZZ Resection of Uterus, Percutaneous Endoscopic Approach (ICD-10-PCS; principal; 2017-03-18 08:00)
PROC: 0UB64ZX Excision of Left Fallopian Tube, Percutaneous Endoscopic Approach, Diagnostic (ICD-10-PCS; principal; 2017-03-18 08:00)
PROC: 0UT04ZZ Resection of Right Ovary, Percutaneous Endoscopic Approach (ICD-10-PCS; principal; 2017-03-18 08:00)
DX: D25.9 Leiomyoma of uterus, unspecified (principal); N83.9 Noninflammatory disorder of ovary, fallopian tube and broad ligament, unspecified; N83.8 Other noninflammatory disorders of ovary, fallopian tube and broad ligament; L91.8 Other hypertrophic disorders of the skin; G89.29 Other chronic pain; R10.2 Pelvic and perineal pain; N83.201 Unspecified ovarian cyst, right side; N83.202 Unspecified ovarian cyst, left side; F90.9 Attention-deficit hyperactivity disorder, unspecified type; M79.7 Fibromyalgia; G25.81 Restless legs syndrome; J31.0 Chronic rhinitis; K21.9 Gastro-esophageal reflux disease without esophagitis; Z79.899 Other long term (current) drug therapy; Z80.1 Family history of malignant neoplasm of trachea, bronchus and lung; Z83.3 Family history of diabetes mellitus; Z82.49 Family history of ischemic heart disease and other diseases of the circulatory system; Z82.3 Family history of stroke